=== PATIENT | female | born 1985 | race Caucasian/White ===

== ENCOUNTER 2017-08-19 06:30 | Inpatient (IN) | payer OTHER ==
[2017-08-19] MEDS ORDERED: fentaNYL* 50 MCG/ML 2 ML VIAL (100 MCG VIAL) IV SLOW PU ONE (12:11)
[2017-08-19] MEDS ORDERED: fentaNYL* 50 MCG/ML 2 ML VIAL (100 MCG VIAL) ONE (12:16)
[2017-08-19 12:22] LABS: ABS Basophils 0.1 10^3/ul (0-0.2); ABS Eosinophils 0 10^3/ul (0-0.6); ABS Lymphocytes 1.3 10^3/ul (1.0-4.8); ABS Monocytes 0.5 10^3/ul (0-0.8); ABS Neutrophils 16.4 10^3/ul (1.5-7.7); ABS Nucleated RBC 0 10^3/ul; Eosinophil % 0.1 % (0-6); Hematocrit 39 % (35-47); Hemoglobin 13.8 g/dl (12.0-16.0); Lymphocyte % 7.3 % (25-47); Mean Corpuscular HGB Conc 35 g/dl (31-36); Mean Corpuscular Hemoglobin 30 pg (27-31); Mean Corpuscular Volume 85 fL (80-97); Mean Platelet Volume 8 um3 (7.4-10.4); Nucleated Red Blood Cells % 0; Platelet Count 194 10^3/ul (150-450); Red Blood Count 4.58 10^6/ul (4.0-5.4); Red Cell Distribution Width 14 % (10.5-15); White Blood Count 18.3 10^3/ul (3.5-10.8)
[2017-08-19] MEDS ORDERED: Glycerin ADULT SUPP PR PRN (14:58)
[2017-08-19] MEDS ORDERED: RHO D Immune Globulin (HUMAN)* 300 MCG = 1,500 I.U. INJ IM ONE (14:58)
[2017-08-19] MEDS ORDERED: Dibucaine 1% 28.35 GM TUBE PR PRN (14:58)
[2017-08-19] MEDS ORDERED: Acetaminophen TAB* 325 MG PO PRN (14:58)
[2017-08-19] MEDS ORDERED: Witch Hazel PAD* JAR TOPICAL PRN (14:58)
[2017-08-19] MEDS ORDERED: Simethicone TAB* 80 MG TAB.CHEW PO SCH (17:30)
[2017-08-19] MEDS: Ibuprofen TAB* 600 MG PO PRN (20:53)
[2017-08-19] MEDS: Docusate CAP* 100 MG PO SCH (20:53)
[2017-08-20 08:32] LABS: ABS Basophils 0.2 10^3/ul (0-0.2); ABS Eosinophils 0.1 10^3/ul (0-0.6); ABS Lymphocytes 2.3 10^3/ul (1.0-4.8); ABS Monocytes 1.1 10^3/ul (0-0.8); ABS Neutrophils 12.3 10^3/ul (1.5-7.7); ABS Nucleated RBC 0 10^3/ul; Eosinophil % 0.4 % (0-6); Hematocrit 35 % (35-47); Hemoglobin 12.2 g/dl (12.0-16.0); Lymphocyte % 14.6 % (25-47); Mean Corpuscular HGB Conc 35 g/dl (31-36); Mean Corpuscular Hemoglobin 30 pg (27-31); Mean Corpuscular Volume 86 fL (80-97); Mean Platelet Volume 7 um3 (7.4-10.4); Nucleated Red Blood Cells % 0; Platelet Count 170 10^3/ul (150-450); Red Blood Count 4.08 10^6/ul (4.0-5.4); Red Cell Distribution Width 14 % (10.5-15); White Blood Count 15.9 10^3/ul (3.5-10.8)
[2017-08-20] MEDS ORDERED: Ferrous Gluconate TAB* 324 MG TAB PO SCH (09:00)
[2017-08-20] MEDS ORDERED: Measles, Mumps,Rubella VACC* 0.5 ML/VIAL SUBCUT ONE (09:00)
[2017-08-20] MEDS: Docusate CAP* 100 MG PO SCH ×3 (09:45→21:06)
[2017-08-20] MEDS: Ibuprofen TAB* 600 MG PO PRN (21:06)
[2017-08-21] MEDS: Ibuprofen TAB* 600 MG PO PRN (06:19)
[2017-08-21 07:56] VITALS: BP 114/64
[2017-08-21] MEDS: Docusate CAP* 100 MG PO SCH (09:25)
== END 2017-08-21 10:08 | disposition home or self-care (01) | DRG 560 ==
LOC: MCHOBOUT 06:30 → MCHOB 07:32
PROVIDERS: ADMIT Midwife; ATTEND Midwife
PROC: 10E0XZZ Delivery of Products of Conception, External Approach (ICD-10-PCS; principal; 2017-08-19)
PROC: 4A1HXCZ Monitoring of Products of Conception, Cardiac Rate, External Approach (ICD-10-PCS; 2017-08-19)
DX: O69.81X0 Labor and delivery complicated by cord around neck, without compression, not applicable or unspecified (principal); O70.0 First degree perineal laceration during delivery; Z3A.39 39 weeks gestation of pregnancy; Z37.0 Single live birth; O77.0 Labor and delivery complicated by meconium in amniotic fluid
CPT/HCPCS: 36415; 85025; 85461; 86850; 86900; 86901; A9270-GY; J2790; J3010

== ENCOUNTER 2019-08-17 13:04 | Emergency (ER) | payer BC, OTHER ==
--- OUTSIDE RECORDS SUMMARY | 2019-08-17 13:47 | XMS REPORT | Continuity of Care Document ---
:1985 External Reference #:[id number] Author Name Jimena Melchor MD Address [address] [place] [address] Problems Active Problems Provider Date Contraception Anastacia Liriano CNM Onset: 10/20/2017 Social History Type Date Description Comments Sex Unknown Tobacco Use Start: Unknown Never Smoked Cigarettes ETOH Use Alcohol Use Prior To 5 per week Recreational Drug Use Does Not Use Drugs Tobacco Use Start: Unknown Patient has never smoked Smoking Status Reviewed: 07/18/19 Patient has never smoked Allergies, Adverse Reactions, Alerts Active Allergies Reaction Severity Comments Date NKDA 03/04/2018 Dust sneezing, itchy eyes 01/27/2017 Medications Active Medications SIG Qnty Indications Ordering Provider Date Unknown Medications Administered in Office Medication SIG Qnty Indications Ordering Provider Date PT SCRN Tbco Id as Non User Jimena Melchor MD 07/18/2019 Injection PT SCRN Tbco Id as Non User Jimena Melchor MD 09/24/2018 Injection No PT Tbco SCRN RNG Hallie Moscoso CNM 09/23/2018 Injection PT SCRN Tbco Id as Non User Hallie Moscoso CNM 09/23/2018 Injection PT SCRN Tbco Id as Non User Anastacia Liriano CNM 05/05/2018 Injection PT SCRN Tbco Id as Non User Anastacia Liriano CNM 03/04/2018 Injection PT SCRN Tbco Id as Non User Anastacia Liriano CNM 08/26/2017 Injection Injection Rho (D) Immune Jimena Pablo CNM 05/28/2017 Globulin, Human, One Dose Package Injection Immunizations CPT Code Status Date Vaccine Lot # [id number] Given 05/28/2017 Tetnus, Diptheria Toxoids And Acellular Pertussis, [id number] PT > 7Yrs Old Vital Signs Date Vital Result Comment 07/18/2019 1:57pm BP Systolic 118 mmHg BP Diastolic 70 mmHg Height 65.25 inches 5'5.25" Weight 153.00 lb BMI (Body Mass Index) 25.3 kg/m2 Last Menstrual Period [id number] Parity 1 02/02/2019 3:16pm BP Systolic 112 mmHg BP Diastolic 70 mmHg Height 65.25 inches 5'5.25" Weight 157.00 lb BMI (Body Mass Index) 25.9 kg/m2 Last Menstrual Period [id number] 1 Parity 1 Results Test Acquired Date Facility Test Result H/L Range Note Laboratory test 07/18/2019 [facility] [place] <pending> [place] [address] east: Vaginal [phone] Dna Procedures Description No Information Available Medical Devices Description No Information Available Encounters Type Date Location Provider Dx Diagnosis Office Visit 07/18/2019 [facility] Office Jimena Melchor MD R10.2 Pelvic and perineal 1:45p pain N76.0 Acute vaginitis Assessments Date Code Description Provider 07/18/2019 R10.2 Pelvic and perineal pain Jimena Melchor MD 07/18/2019 N76.0 Acute vaginitis Jimena Melchor MD 02/02/2019 Z30.8 Encounter for other contraceptive management Anastacia Liriano CNM Plan of Treatment 07/18/2019 - Jimena Melchor, MDR10.2 Pelvic and perineal painComments:Could be multiple reasons for pain; possible ruptured cysts vs bladder, GI, uterine cause. Will await test results. test negative.N76.0 Acute vaginitisComments:Will await results, contact and tx accordingly. Functional Status Description No Information Available Mental Status Description No Information Available Referrals Description No Information Available
[2019-08-17 13:59] VITALS: BP 106/66
[2019-08-17 14:16] LABS: Influenza A Molecular POSITIVE (Negative)
--- NOTE | 2019-08-17 14:23 | UC ---
FLU HPI - HPI Summary HPI Summary: Pt presents with c/o sudden onset of fever, chills, body aches, SANDOVAL X 1 day. - History of Current Complaint Chief Complaint: UCGeneralIllness Stated Complaint: SORE THROAT,HEADACHE,NAUSEA Time Seen by Provider: 08/17/19 13:58 Hx Obtained From: Patient Hx Last Menstrual Period: 07/25/19 ?: No Onset/Duration: Sudden Onset Severity Currently: Moderate Severity Initially: Moderate Pain Intensity: 5 Associated Signs & Symptoms: Positive: Fever, Myalgia, Cough, Sore Throat, Nasal Congestion, Headache Related Hx: Possible Flu/Infectious Exposure - Risk Factors Influenza Risk Factors: Negative - Allergy/Home Medications Allergies/Adverse Reactions: Allergies Allergy/AdvReac Type Severity Reaction Status Date / Time No Known Allergies Allergy Verified 08/17/19 13:53 PMH/Surg Hx/FS Hx/Imm Hx Previously Healthy: Yes - Surgical History Surgical History: Yes Surgery Procedure, Year, and Place: tonsillectomy 2004 - Family History Known Family History: Negative: Blood Disorder - Social History Occupation: Employed Full-time, Works From/At Home Lives: With Family Alcohol Use: Occasionally Alcohol Amount: none during Substance Use Type: None Smoking Status (MU): Never Smoked Tobacco Have You Smoked in the Last Year: No - Immunization History Most Recent Influenza Vaccination: declined Most Recent Pneumonia Vaccination: never Vaccination Up to Date: Yes Review of Systems All Other Systems Reviewed And Are Negative: Yes Constitutional: Positive: Fever, Chills, Fatigue Skin: Positive: Negative Eyes: Positive: Negative ENT: Positive: Sore Throat Respiratory: Positive: Cough Cardiovascular: Positive: Negative Gastrointestinal: Positive: Negative Genitourinary: Positive: Negative Motor: Positive: Negative Neurovascular: Positive: Negative Musculoskeletal: Positive: Myalgia Neurological: Positive: Headache Psychological: Positive: Negative Is Patient Immunocompromised?: No Physical Exam Triage Information Reviewed: Yes Appearance: Ill-Appearing Vital Signs: Initial Vital Signs Temp 101.6 F 08/17/19 13:54 Pulse 100 08/17/19 13:54 Resp 15 08/17/19 13:54 BP 106/66 08/17/19 13:54 Pulse Ox 100 08/17/19 13:54 Vital Signs Reviewed: Yes Eye Exam: Normal ENT: Positive: Nasal congestion Dental Exam: Normal Neck exam: Normal Respiratory Exam: Normal Cardiovascular Exam: Normal Musculoskeletal Exam: Normal Neurological Exam: Normal Psychological Exam: Normal Skin Exam: Normal Flu Course/Dx - Differential Dx/Diagnosis Differential Diagnosis/HQI/PQRI: Bronchitis, Influenza, Pneumonia, Upper Respiratory Infection Provider Diagnosis: Influenza A Discharge ED - Sign-Out/Discharge Documenting (check all that apply): Patient Departure All imaging exams completed and their final reports reviewed: No Studies - Discharge Plan Condition: Stable Disposition: HOME Prescriptions: Benzonatate CAP* [Tessalon 100 MG CAP*] 100 mg PO Q8H PRN #30 cap PRN Reason: Cough Oseltamivir CAP* [Tamiflu CAP*] 75 mg PO Q12H #10 cap predniSONE 10 mg TAB [Deltasone 10 MG TAB*] 30 mg PO DAILY #12 tab Patient Education Materials: Influenza (ED) Referrals: No Primary Care Phys,NOPCP [Primary Care Provider] - [facility] [Outside] - Billing Disposition and Condition Condition: STABLE Disposition: Home
== END 2019-08-17 14:33 | disposition home or self-care (01) ==
LOC: UCCORT 13:04
DX: J10.1 Influenza due to other identified influenza virus with other respiratory manifestations (principal)
CPT/HCPCS: 99212; G0463

== ENCOUNTER 2023-01-10 09:14 | Inpatient (IN) ==
[2023-01-10] MEDS ORDERED: Buffered Lidocaine 1% SYRIN 1 ml INTRADERM ONE (09:49)
[2023-01-10] MEDS ORDERED: Lactated Ringers 1000 ml BAG 1,000 ML IV ONE (09:49)
[2023-01-10] MEDS ORDERED: Promethazine INJ(RESTRICTED) 25 MG/ML 1 ml VIAL IV PRN (09:49)
[2023-01-10] MEDS ORDERED: Lactated Ringers 1000 ml BAG 1,000 ML IV SCH ×2 (10:00→13:00)
[2023-01-10 11:06] LABS: Urine Benzodiazepine Screen None Detected (None Detect); Urine Opiates Screen None Detected (None Detect)
[2023-01-10] MEDS ORDERED: Dibucaine 1% OINT 28.35 GM TUBE PR PRN (12:36)
[2023-01-10] MEDS ORDERED: Witch Hazel PAD JAR TOPICAL PRN (12:36)
[2023-01-10] MEDS ORDERED: Oxytocin 10 UNITS/ML 1 ML VIAL IM PRN (12:36)
[2023-01-11 07:05] LABS: ABS Basophils 0.2 10^3/uL (0.0-0.1); ABS Eosinophils 0.2 10^3/uL (0.0-0.5); ABS Lymphocytes 2.6 10^3/uL (1.0-4.8); ABS Monocytes 1.1 10^3/uL (0.0-0.9); ABS Neutrophils 12.1 10^3/uL (1.5-7.6); ABS Nucleated RBC 0.03 10^3/ul; Eosinophil % 1.2 %; Hemoglobin 12.1 g/dL (11.5-14.3); Lymphocyte % 15.9 %; Mean Corpuscular Hemoglobin 30.8 pg (27-33); Mean Corpuscular Hgb Conc 35.7 g/dL (31-36); Mean Corpuscular Volume 86.3 fL (80-97); Mean Platelet Volume 7.5 fL (7.5-11.2); Nucleated Red Blood Cells % 0.2 /100 WBC (0.0-0.4); Platelet Count 150 10^3/uL (150-450); Red Blood Count 3.94 10^6/uL (3.63-4.92); Red Cell Distribution Width 13.9 % (12-17); White Blood Count 16.1 10^3/uL (3.8-11.8)
[2023-01-11 07:32] VITALS: BP 106/56
[2023-01-11] MEDS ORDERED: RHO D Immune Globulin (HUMAN) 300 MCG = 1,500 I.U. INJ IM ONE (08:24)
== END 2023-01-11 14:27 | disposition home or self-care (01) | DRG 560 ==
LOC: MCHOBOUT 09:14 → MCHOB 10:11
PROVIDERS: ADMIT Registered Nurse; ATTEND Registered Nurse